=== PATIENT | male | born 1935 | race Caucasian/White ===

== ENCOUNTER 2016-11-07 21:16 | Emergency (ER) | payer MEDICARE, MEDICAID ==
[~2016-11-07] VITALS: Ht 182.9 cm; Wt 100.0 kg
[~2016-11-07 21:16] MED LIST: AMLO5TAB2 PO; ASPI-973 PO; ATOR20TA65 PO; CARV6.252 PO; CHOL10008 PO; CYAN10008 PO; ISOS30TA4 PO; LOSA50TA37 PO; NITR0.4T SL; OSEL30CA PO
[2016-11-07 21:19] VITALS: BP 144/80; PULSE 65; RESP 16; O2SAT 96
[2016-11-07] MEDS ORDERED: 0.9% Sodium Chloride 1,000 ML IV ONE (21:22)
--- NOTE | 2016-11-07 21:22 | ED.REPORT ---
HPI-Syncope Date of Service Nov 07, 2016 ED Provider: Dr. Piero Ramirez 81 year old male with a hx of HTN and CAD s/p CABG and stents who presents to the ER via EMS accompanied by family following a syncopal episode. The patient was fasting all day today until approximately 4:30. During the fast he felt slightly lightheaded. Then approximately 1 hour prior to arrival, the patient was at taoism kneeling to pray when he suddenly lost consciousness. Prior to the syncopal episode, he reports feeling lightheaded/dizzy and having a "hot flash/head pressure". The episode was in the presence of family who denies any injury and states that he was not conscious for approximately 5 seconds. Pt did not have loss of bowel or bladder control or tongue biting. Pt denies recent illness and any CP or SOB. Denies vomiting and diarrhea. Upon EMS arrival the patient was awake and alert. BGL 103. 115S sitting and 118s standing. Pt is Polish and family members are able to translate. Nursing Notes Stated Complaint: SYNCOPE Chief Complaint: General Complaint Nursing Notes Reviewed: Yes Allergies: Coded Allergies: hydromorphone (Verified Allergy, Severe, PT SENSITIVE TO DILAUDID, ) Scheduled Amlodipine (Amlodipine) 5 Mg Tablet 10 MG PO DAILY Aspirin (Aspirin) 81 Mg Tablet 81 MG PO DAILY Atorvastatin Calcium (Atorvastatin Calcium) 20 Mg Tablet 20 MG PO DAILY Carvedilol (Carvedilol) 6.25 Mg Tablet 3.125 MG PO BID Cholecalciferol (Vitamin D3) (Vitamin D3) 1,000 Unit Tab.chew 1,000 UNIT PO DAILY Cyanocobalamin (Vitamin B-12) (Vitamin B-12) 1,000 Mcg Tablet 2,000 MCG PO DAILY Isosorbide MN ER (Isosorbide MN ER) 30 Mg Tab.er.24h 30 MG PO DAILY Losartan Potassium (Losartan Potassium) 50 Mg Tablet 50 MG PO BID Oseltamivir Phosphate (Tamiflu) 30 Mg Capsule 30 MG PO BID Scheduled PRN Nitroglycerin SL (Nitrostat) 0.4 Mg Tab.subl 0.4 MG SL Q5MIN PRN PRN For Chest Pain General Time Seen by Provider: 21:22 Chief Complaint Lost consciousness Hx Obtained From: Patient, Other family..., EMS Arrived By: Ambulance Onset Occurred: 1 - 4 hours ago Progression Since Onset: Rapidly improving Severity: Current: No pain currently Associated with: Denies: Chest pain, Shortness of breath Pertinent Negative: Relieved by nothing Past Medical History Past Medical History 1. Coronary artery disease, status post percutaneous coronary intervention as of May 2007, where a Taxus stent was deployed to the proximal circumflex. Reports: Coronary artery disease, Hypertension, Denies: Diabetes mellitus Past Surgical History Reports: Angioplasty, CABG Family History FAMILY HISTORY: Father of PR at age 45. He has a brother with 2 MIs that occurred in his 60s. Smoking History Never Smoker Social History Other Social History: Good social support Ambulatory Status Independent Review of Systems Constitutional: Denies: Fever Ears / Nose / Throat: Denies: Tongue pain Respiratory: Denies: Shortness of breath Cardiovascular: Denies: Chest pain GI: Denies: Diarrhea, Vomiting Neurologic: Reports: Change LOC, Lightheaded, Syncope, Denies: Bladder dysfunction, Bowel dysfunction, Dizziness, Headache, Problem walking, Seizure, Shaking Complete sys rev & neg: except as marked. Physical Exam Initial Vital Signs Vital Signs (First) Date Time Temp Pulse Resp B/P Pulse Ox O2 Delivery O2 Flow Rate FiO2 11/07/16 21:19 36.5 65 16 144/80 96 Room Air Initial VS: Reviewed Head / Eyes: Atraumatic, Normocephalic, PERRL ENT: Mucous membranes moist, Conjunctiva normal, No scleral icterus Neck: Full range of motion Abdomen / GI: Soft, Non-tender, No guarding, No rebound, No distention Skin: Warm, Dry, No cyanosis (Normal color) Psychiatric: Mood/affect normal, Behavior normal, Normal thought content General/Constitutional: Awake, Alert, Cooperative Respiratory / Chest: Breath sounds NL, Breath sounds = bilat, No respiratory distress, No rales, No rhonchi, No wheezing Cardiovascular: Heart rate NL, Regular rhythm, Heart sounds NL, No murmurs, Cap refill not delayed, Peripheral circulation NL Lower Extremity / Pelvis / MS: Atraumatic, Inspection NL, Full range of motion , Neurologic intact, Vascular intact, No edema Neurologic: Oriented X3, Speech NL, No motor deficits, No sensory deficits Interpretation & Diagnostics Lab Results Interpretation Result Diagram: 11/07/16213211/07/162132 Test 11/07/16 21:33 11/08/16 01:05 White Blood Count 8.5th/mm3 (3.8-10.1) Red Blood Count 4.61mil/mm3 (4.40-5.80) Hemoglobin 13.8g/dL (13.8-17.2) Hematocrit 41.4% (41.0-50.0) Mean Corpuscular Volume 89.8fL (81-100) Mean Corpuscular Hemoglobin 29.9pg (27.0-35.0) Mean Corpuscular Hemoglobin Concent 33.3% (32.0-37.0) Red Cell Distribution Width 12.9% (12.3-15.4) Platelet Count 187bil/L (150-400) Neutrophils (%) (Auto) 66.7% (40-74) Lymphocytes (%) (Auto) 20.0% (14-46) Monocytes (%) (Auto) 9.8% (4-12) Eosinophils (%) (Auto) 2.9% (0-5) Basophils (%) (Auto) 0.4% (0-3) Prothrombin Time 10.7sec (8.1-12.5) Prothromb Time International Ratio 1.00ratio D-Dimer 1.5mg/L (<0.50) Sodium Level 141mEq/L (134-144) Potassium Level 3.8mEq/L (3.5-5.2) Chloride Level 101mEq/L (97-108) Carbon Dioxide Level 29mmol/L (18-29) Blood Urea Nitrogen 15mg/dL (8-27) Creatinine 1.20mg/dL (0.76-1.27) Estimat Glomerular Filtration Rate 62mL/min (>59) Glucose Level 128mg/dL (60-99) Calcium Level 9.8mg/dL (8.5-10.1) Magnesium Level 1.8mg/dL (1.6-2.6) Total Bilirubin 0.6mg/dL (0.0-1.2) Aspartate Amino Transf (AST/SGOT) 20U/L (0-50) Alanine Aminotransferase (ALT/SGPT) 19U/L (0-44) Alkaline Phosphatase 66U/L (25-160) Pro-B-Type Natriuretic Peptide 224.9pg/mL (0-486) Total Protein 6.8g/dL (6.4-8.4) Albumin 3.8g/dL (3.4-5.0) Hold Lopez Top Tube Received (Received) Troponin T 0.010ug/L (0.0-0.011) General Lab Results Interp 1: Labs reviewed Pulse Oximetry Interpretation Pulse Oximetry: Pulse Ox normal (96), On room air ECG Interpretation Time: 21:23 Interpreted by: ED physician Normal ECG Interpretation: Normal rate (64), Normal sinus rhythm, No acute ischemic changes Rhythm Strip Interpretation : Time: 21:23 Rhythm Strip Interpretation: Interpreted by me, Rate (64), Normal sinus rhythm X-Ray Chest Interpretation Chest Xray Interpretation: Atelectasis L base, otherwise nothing acute. View: Portable, 1 view Interpretation / Wet Read by: Interpret - Radiologist CT Chest Interpretation No evidence of PE or dissection. Irregular interstitial markings in the posterior lung bases which may be acute or chronic. Study type: CT pulm angiogram Interpretation / Wet Read by: Interpret - Radiologist Re-Eval/Medical Decision Med Decision/Clinical Course PR ruled out EKG and serial troponins. He also denies that he never had chest pain. Dissection was ruled out. PE was ruled out. His EKG is normal without evidence of conduction abnormality. I suspect that he passed out because he had been kneeling and had been fasting today. I talked to him about hospital observation. He strongly prefers to go home. I do not have a very good reason to admit him to the hospital other than the fact that he passed out for 5 seconds. It certainly does not sound like it was a malignant arrhythmia. I really think this was most likely orthostatic. As such I think it safe for him to be discharged home. I will have close outpatient follow-up. We did run serial troponins this was all very reassuring. Re-Evaluation/Progress : Time of Eval: 01:58 Re-Evaluation/Progress Note: Pt is feeling much improved. Updated pt of labs, ECG and imaging results. Discussed plan for discharge and follow up. All questions addressed. Counseled Regarding: Diagnosis, Lab results, Need for follow-up, When/why to return to ED Discharge & Departure Impression: Primary Impression: Syncope Syncope type: unspecified Qualified Code: R55 - Syncope and collapse Disposition: Home Discharge Condition All VS Reviewed: Yes Condition: Improved Patient Instructions: Syncope (ED) Additional Instructions: The CAT scan of the chest did not show a blood clot. You EKG shows no signs of a heart attack or arrhythmia. Your serial blood tests were reassuring. No signs of heart injury. Your electrolytes are normal. The cause of the syncopal episode is uncertain. This may be from the fact that you were fasting and had been kneeling. We will happily observe you over night in the hospital if you change your mind or if you do not feel comfortable being discharged home. Otherwise, drink plenty of liquids. Stand up slowly. Follow up with her primary care physician next week. Return if any problems or any worsening symptoms. Referrals: Remington Gottlieb MD (PCP) Scribe Attestation Portions of this note were transcribed by Florence Hernandes. I, (Dr. Ramirez) personally performed the history, physical exam and medical decision-making; I reviewed and confirmed the accuracy of the information in the transcribed note. Signed by: Florence Hernandes. Anh, 11/08/2016, 0202 copies to: Remington Gottlieb MD, Todd P DO Nov 07, 2016 21:22 Florence Hernandes Nov 07, 2016 21:46
[2016-11-07 21:48] LABS: BASOPHILS % (AUTO) 0.4 % (0-3); EOSINOPHILS % (AUTO) 2.9 % (0-5); MONOCYTES % (AUTO) 9.8 % (4-12); Mean Corpuscular Hemoglobin 29.9 pg (27.0-35.0); Mean Corpuscular Volume 89.8 fL (81-100); NEUTROPHILS % (AUTO) 66.7 % (40-74); Platelet Count 187 bil/L (150-400)
[2016-11-07 22:25] LABS: Magnesium 1.8 mg/dL (1.6-2.6)
[2016-11-07 22:27] LABS: D-DIMER 1.5 mg/L (<0.50)
[2016-11-07 22:28] LABS: TROPONIN T 0.01 ug/L (0.0-0.011)
[2016-11-07 22:52] VITALS: BP 135/72; PULSE 71; RESP 12; O2SAT 97
[2016-11-08] MEDS ORDERED: 0.9% Sodium Chloride 1,000 ML IV ONE (01:00)
[2016-11-08 02:14] VITALS: BP 173/86; PULSE 64; RESP 18; O2SAT 94
--- NOTE | 2016-11-08 06:31 | DRSVH ---
PROCEDURE: X-RAY CHEST ONE VIEW, PORTABLE ([id number]) INDICATIONS: 81-year-old male with syncope. TECHNIQUE: One view of the chest was acquired. COMPARISON: [facility], CR, XR CHEST 1VW (PORTABLE), 09/05/2016, 15:05. [facility], CR, XR CHEST 2VW, 11/19/2015, 13:53. [facility], CR, CHEST 1VW (PORTABLE), 05/16, 13:11. FINDINGS: Surgical changes and devices: Patient is status post coronary artery bypass grafting. Lungs and pleura: No pleural effusions or pneumothorax. Lungs are clear. Mediastinum: Mediastinal contours appear normal. Heart size is normal. There is aortic atheroscler osis. Bones and chest wall: No suspicious bony lesions. Overlying soft tissues appear unremarkable. IMPRESSION: No acute cardiopulmonary disease. Dictated by: Adrian Winn M.D. on 11/08/2016 at 6:28 Approved by: Adrian Winn M.D. on 11/08/2016 at 6:29
--- NOTE | 2016-11-08 08:15 | DRSVH ---
PROCEDURE: CT ANGIO CHEST PULMONARY EMBOLISM ([id number]) INDICATIONS: syncope, elevated ddimer TECHNIQUE: After the administration of intravenous contrast, 2 mm thick sections acquired from the pulmonary api cody to the posterior costophrenic angles. 3-dimensional maximum intensity projection (MIP) coronal a nd sagittal reformats were then acquired through the thorax. For radiation dose reduction, the follo wing was used: automated exposure control, adjustment of mA and/or kV according to patient size. COMPARISON: [facility], CT, CHEST ANGIO-PE, 05/03/2010, 23:56. FINDINGS: Image quality: Excellent. Pulmonary arteries: Pulmonary arteries are normal in size, and demonstrate no intraluminal filling d efects to suggest central pulmonary embolism. Lungs and pleura: Mild bibasilar scarring versus atelectasis. No change in 4 mm diameter nodule with in the right middle lobe anteriorly. Lungs are otherwise clear. No pleural effusions or pneumothorax . Central and peripheral airways are patent. Mediastinum: Heart size is normal, without pericardial effusion. There is calcification of the nagi nary vasculature, as before. No mediastinal or hilar adenopathy. Calcified right infrahilar and righ t subcarinal lymph nodes. Thoracic aorta is normal in caliber and enhancement. Esophagus is normal i n caliber, without hiatal hernia. Bones and chest wall: No suspicious bony lesions. Ribs and thoracic spine appear intact throughout. Thyroid gland is within normal limits. No axillary or supraclavicular adenopathy. Abdomen: Visualized upper abdominal solid organs appear normal in the early arterial phase of enhanc ement. IMPRESSION: 1. No acute process. No pulmonary embolus. 2. Coronary artery disease. 3. No change in right middle lobe 4 mm diameter pulmonary nodule; followup is recommended as below. 4. Concordant with preliminary interpretation. Fleischner Society criteria for SOLID lung nodule followup. Nodule size (mm)Low-risk patientHigh-risk [id number] follow-up neededFollow-up at 12 mo; if no graham e, no further follow-up>2-7Yeyxct-zt CT at 12 mo; if no change, no further follow-up needed.Initial f ollow-up CT at 6-12 mo, then 18-24 mo if no change. >6-8Initial follow-up CT at 6-12 mo, then 18-24 mo if no change. Initial follow-up CT at 3-6 mo, then 9-12 mo and 24 mo if no change. >8Follow-up CT at 3, 9, 24 mo. Or PET and/or biopsy.Same as for low-risk pts. Dictated by: Maria Teresa Brown M.D. on 11/08/2016 at 8:06 Approved by: Maria Teresa Brown M.D. on 11/08/2016 at 8:09
== END 2016-11-08 02:15 | disposition home or self-care (01) ==
LOC: SED 21:16
DX: R55 Syncope and collapse (principal); I10 Essential (primary) hypertension; I25.10 Atherosclerotic heart disease of native coronary artery without angina pectoris; Z95.1 Presence of aortocoronary bypass graft; Z79.82 Long term (current) use of aspirin; Z88.5 Allergy status to narcotic agent
CPT/HCPCS: 36415; 71010; 71275; 80053; 83735; 83880; 84484; 85025; 85379; 85610; 93005; 96360; 96361; 99285; J7030; Q9967